=== PATIENT | male | born 1995 | race Caucasian/White ===

== ENCOUNTER 2021-05-13 01:34 | Inpatient (IN) ==
[2021-05-13 01:20] LABS: HEMATOCRIT 42.8 % (42.0-54.0); HEMOGLOBIN 15.3 g/dL (13.5-18.0); MEAN CORPUSCULAR HEMOGLOBIN 29.8 pg (27.0-34.0); MEAN CORPUSCULAR HGB CONC 35.7 g/dL (33.0-35.0); MEAN CORPUSCULAR VOLUME 83.5 fL (80.0-100.0); MEAN PLATELET VOLUME 7.6 fL (7.4-11.0); PLATELET COUNT 257 X10^3/uL (150.0-450.0); RED BLOOD COUNT 5.12 X10^6/uL (4.7-6.0); RED CELL DISTRIBUTION WIDTH 12.5 % (11.6-16.5)
[2021-05-13 01:22] LABS: BILIRUBIN,URINE NEGATIVE (NEGATIVE); BLOOD/HEMOGLOBIN,URINE NEGATIVE (NEGATIVE); GLUCOSE, URINE NEGATIVE (NEGATIVE); KETONES,URINE 1+ (NEGATIVE); LEUKOCYTE ESTERASE ,URINE NEGATIVE (NEGATIVE); NITRITES,URINE NEGATIVE (NEGATIVE); PROTEIN,URINE NEGATIVE (NEGATIVE); UROBILINOGEN,URINE NORMAL (NORMAL)
[2021-05-13 01:29] LABS: ALANINE AMINOTRANSFERASE 69 Units/L (12-78); ALBUMIN 4.1 g/dL (3.4-5.0); ALKALINE PHOSPHATASE 68 Units/L (46-116); ASPARTATE AMINO TRANSFERASE 27 Units/L (15-37); BLOOD UREA NITROGEN 12 mg/dL (7-18); CALCIUM 9.4 mg/dL (8.5-10.1); CARBON DIOXIDE 28.4 mmol/L (21-32); CHLORIDE 100 mmol/L (98-107); COR NA(FOR HYPERGLY) 139 mmol/L (136-145); CREATININE 0.94 mg/dL (0.70-1.30); SODIUM 139 mmol/L (136-145); TOTAL PROTEIN 7.8 g/dL (6.4-8.2); eGFR NON BLACK RACES > 60 (>60)
--- NOTE | 2021-05-13 01:31 | RAD ---
STUDY: ACUTE ABDOMEN SERIESCOMPARISON: NoneHISTORY: ABD PAINFINDINGS:CHEST:There is no focal consolidation seen.The heart size is normal.The mediastinum is unremarkable.There is no evidence of pleural effusion or gross pneumothorax.ABDOMEN:The bowel gas pattern is nonobstructive.There is no gross evidence of free air.There are no abnormal masses or calcification seen.The visualized bones are unremarkable.IMPRESSION:1. THE LUNGS ARE CLEAR AND THE HEART SIZE IS NORMAL.2. THE BOWEL GAS PATTERN IS NONOBSTRUCTIVE. Electronically signed by: Darryl Steen (May 13, 2021 01:29:34)
[2021-05-13 01:42] VITALS: BMI 38.5
--- NOTE | 2021-05-13 01:48 | DR.ABDMALE ---
HPI Time seen Time Seen by Provider: 05/13/21 01:46 EST PCP Primary Care Physician: LEROY HPI comment HPI Comment: Sudden onset generalized abd pain about six hours ago for which he took gas x as below without relief; continues to belch and pain continues; n/v x 6 and feels constipated; no prior hx abd complaints and still has gb and appendix; no fever, chills and only had steak for dinner; no acidic foods. Complaint Chief Complaint:: PT AMBULATORY IN ED WITH C/O MIDDLE UPPER ABD PAIN. PT STATES "MY STOMACH IS KILLING ME" "I HAVE THREW UP LIKE 6 TIMES SINCE 10" "I CAN'T USE THE BATHROOM". Self Treatment fo Chief Complaint: PT TOOK GASX AT HOME AROUND APPROX 2230. COVID-19 Coronavirus risk:travel/contact w/high risk person: No Has patient experienced Coronavirus symptoms: No Mode of arrival Mode of Arrival: Ambulatory Timing Onset of Chief Complaint: 05/13/21 PMH PMH Past Medical History: No Past Surgical History: No Family History History of Family Medical Conditions: Yes Family Medical History: Diabetes Mellitus, Cancer and [place] Social History Type of Tobacco Use: Cigarettes Alcohol Use: None Do you use any recreational Drugs:: No Lives With: Family Lives Where: Home Travel Risk Coronavirus risk:travel/contact w/high risk person: No Has patient experienced Coronavirus symptoms: No Infectious screening Have you traveled outside the country in the last 6 months?: No Isolation: Standard ROS Review of Systems Constitutional: No Symptoms Reported Eyes: No Symptoms Reported ENTM: No Symptoms Reported Respiratoy: No Symptoms Reported Cardiovascular: No Symptoms Reported Genitourinary: No Symptoms Reported Neurological: No Symptoms Reported Musculoskeletal: No Symptoms Reported Integumentary: No Symptoms Reported Hematologic/Lymphatic: No Symptoms Reported Endocrine: No Symptoms Reported Psychiatric: No Symptoms Reported PE Vital Signs Vital Signs: Temp Pulse Resp BP BP Pulse Ox 05/13/21 04:41 20 05/13/21 04:11 18 05/13/21 02:33 20 05/13/21 02:03 18 05/13/21 01:46 EST 20 05/13/21 01:16 EST 20 05/13/21 01:36 EDT 98.1 F 77 22 141/90 96 09/10/19 14:45 142/81 General Limitations: No Limitations General Appearance: Alert and In No Apparent Distress Head Head Exam: Normal Inspection Eyes Eye exam: Normal Appearance ENT ENT Exam: Normal Exam Neck Neck Exam: Normal Inspection Chest Chest Inspection: Normal Inspection Respiratory Respiratory Exam: Normal Lung Sounds Bilat Cardiovascular Cardiovascular Exam: Regular Rate and Normal Rhythm Abdominal Exam Abdominal Exam: Normal Inspection, Normal Bowel Sounds, Soft and Tenderness Abdominal Tenderness: RLQ and Moderate Rectal Rectal Exam: Deferred Back Back Exam: Normal Inspection Extremeties Extremities Exam: Normal Inspection Exam: Male: Deferred Neurologic Neurological Exam: Alert and Oriented X3 Psychiatric Psychiatric Exam: Normal Affect and Normal Mood Skin Skin Exam: Warm, Dry, Intact and Normal Color MDM Differential Diagnosis Differential Diagnosis: Appendicitis, Bowel Obstruction, Cholcystitis, Divert icular disease, Gastroenteritis, Hepatitis and Pancreatitis COURSE Reevaluation 1st: Unchanged 2nd: Unchanged 3rd: Improved Consultation Call Returned: 05:14 (Dr Montgomery accepts admission) Education/Counseling Education/Counseling: Patient and Family Educated On: Treatment and Diagnosis ROR Labs Reviewed Laboratory Results Reviewed?: Yes Result Diagrams: 05/13/21 01:00 EST 05/13/21 01:00 EST Laboratory: WBC 18.0 X10^3/uL (3.6-10.0) H 05/13/21 01:00 EST RBC 5.12 X10^6/uL (4.7-6.0) 05/13/21 01:00 EST Hgb 15.3 g/dL (13.5-18.0) 05/13/21 01:00 EST Hct 42.8 % (42.0-54.0) 05/13/21 01:00 EST MCV 83.5 fL (80.0-100.0) 05/13/21 01:00 EST MCH 29.8 pg (27.0-34.0) 05/13/21 01:00 EST MCHC 35.7 g/dL (33.0-35.0) H 05/13/21 01:00 EST RDW 12.5 % (11.6-16.5) 05/13/21 01:00 EST Plt Count 257 X10^3/uL (150.0-450.0) 05/13/21 01:00 EST MPV 7.6 fL (7.4-11.0) 05/13/21 01:00 EST Absolute Nucleated RBC 0.0 /100WBC 05/13/21 01:00 EST Sodium 139 mmol/L (136-145) 05/13/21 01:00 EST Corrected Sodium 139 mmol/L (136-145) 05/13/21 01:00 EST Potassium 3.8 mmol/L (3.5-5.1) 05/13/21 01:00 EST Chloride 100 mmol/L (98-107) 05/13/21 01:00 EST Carbon Dioxide 28.4 mmol/L (21-32) 05/13/21 01:00 EST BUN 12 mg/dL (7-18) 05/13/21 01:00 EST Creatinine 0.94 mg/dL (0.70-1.30) 05/13/21 01:00 EST Est GFR (MDRD) Af Amer > 60 (>60) 05/13/21 01:00 EST Est GFR (MDRD) Non-Af > 60 (>60) 05/13/21 01:00 EST Glucose 120 mg/dL (65-99) H 05/13/21 01:00 EST Calcium 9.4 mg/dL (8.5-10.1) 05/13/21 01:00 EST Corrected Calcium TNP 05/13/21 01:00 EST Total Bilirubin 0.70 mg/dL (0.2-1.0) 05/13/21 01:00 EST AST 27 Units/L (15-37) 05/13/21 01:00 EST ALT 69 Units/L (12-78) 05/13/21 01:00 EST Alkaline Phosphatase 68 Units/L (46-116) 05/13/21 01:00 EST Total Protein 7.8 g/dL (6.4-8.2) 05/13/21 01:00 EST Albumin 4.1 g/dL (3.4-5.0) 05/13/21 01:00 EST Globulin 3.7 g/dL (2.5-4.5) 05/13/21 01:00 EST Albumin/Globulin Ratio 1.1 Ratio (1.1-2.1) 05/13/21 01:00 EST Lipase 57 Units/L (73-393) L 05/13/21 01:00 EST Specimen Type Clean catch urine 05/13/21 00:47 Urine Color Yellow (YELLOW) 05/13/21 00:47 Urine Appearance Clear (CLEAR) 05/13/21 00:47 Urine pH 6.0 (5.0 - 8.0) 05/13/21 00:47 Ur Specific [place] 1.020 (1.000-1.030) 05/13/21 00:47 Urine Protein Negative (NEGATIVE) 05/13/21 00:47 Urine Glucose (UA) Negative (NEGATIVE) 05/13/21 00:47 Urine Ketones 1+ (NEGATIVE) 05/13/21 00:47 Urine Occult Blood Negative (NEGATIVE) 05/13/21 00:47 Urine Nitrite Negative (NEGATIVE) 05/13/21 00:47 Urine Bilirubin Negative (NEGATIVE) 05/13/21 00:47 Urine Urobilinogen Normal (NORMAL) 05/13/21 00:47 Ur Leukocyte Esterase Negative (NEGATIVE) 05/13/21 00:47 SARS-CoV-2 (PCR) Negative (NEGATIVE) 05/13/21 05:15 Influenza Type A (PCR) Negative (NEGATIVE) 05/13/21 05:15 Influenza Type B (PCR) Negative (NEGATIVE) 05/13/21 05:15 RSV (PCR) Negative (NEGATIVE) 05/13/21 05:15 Other Results Comments: 0505 radiologist reports "acute appendicitis, possible rupture" XRAY XRAY Interpreted by: Radiologist X-ray Results: ct abd/pelvis: 1. Exam is positive for acute appendicitis. There is a possibility that the distal segment of the appendix has ruptured and a moderate amount of surrounding free fluid stranding is noted. Surgical consultation is recommended. abd xr: 1. THE LUNGS ARE CLEAR AND THE HEART SIZE IS NORMAL. 2. THE BOWEL GAS PATTERN IS NONOBSTRUCTIVE. Opioid Opioid Risk Tool Age (Aryan box if 16-45): Yes History of Preadolescent Sexual Abuse: No Total: 1 Total Score Risk Category: Low Risk Copyright: Ángel RIOS predicting aberrant behaviors Diagnosis Discharge Problem: Lymphocytosis Appendicitis Qualifiers: Appendicitis type: acute appendicitis Acute appendicitis type: with localized peritonitis Appendicitis gangrene presence: without gangrene Appendicitis perforation presence: with perforation Appendicitis abscess presence: without abscess Qualified Code(s): K35.32 - Acute appendicitis with perforation and localized peritonitis, without abscess
[2021-05-13 01:49] LABS: APPEARANCE,URINE CLEAR (CLEAR); COLOR,URINE YELLOW (YELLOW)
[2021-05-13] MEDS ORDERED: ZOFRAN INJ 4 MG VIAL IVP ONE ×2 (01:49→04:12)
[2021-05-13] MEDS ORDERED: NS 1,000 ML IV 1,000 ML IV ONE (01:49)
[2021-05-13] MEDS ORDERED: ZOFRAN INJ 4 MG VIAL ONE ×3 (01:50→09:07)
[2021-05-13] MEDS ORDERED: NS 1,000 ML IV 1,000 ML ONE ×2 (01:50→05:41)
[2021-05-13] MEDS ORDERED: MORPHINE SULFATE INJ 4 MG IVP ONE (01:53)
[2021-05-13] MEDS ORDERED: DILAUDID INJ IVP ONE (01:53)
[2021-05-13] MEDS ORDERED: MORPHINE SULFATE INJ 4 MG ONE (01:56)
[2021-05-13] MEDS: DILAUDID INJ ONE ×2 (02:01→02:04)
[2021-05-13] MEDS ORDERED: NS 100 ML IV 100 ML ONE ×2 (02:40→09:49)
[2021-05-13] MEDS ORDERED: DILAUDID INJ IVP STA ×2 (03:47→05:22)
[2021-05-13] MEDS ORDERED: DILAUDID INJ ONE ×3 (04:06→09:15)
--- NOTE | 2021-05-13 05:09 | CT ---
STUDY: CT ABDOMEN AND PELVIS WITH IV CONTRASTCOMPARISON: NoneTECHNIQUE: Axial images were acquired of the abdomen and pelvis with IV contrast. Sagittal and coronal reformatted images were provided. All images were reviewed in a variety of windows and levels.RADIATION REDUCTION TECHNIQUE: Automated exposure control, adjustment of the mA and/or kV according to patient size, or iterative reconstruction techniques were used.HISTORY: RLQ PAIN, LYMPHOCYTOSISFINDINGS:LOWER THORAX: The visualized lower lung zones are clear. The heart size is within normal limits. There is no evidence of a pericardial effusion.LIVER: No intrahepatic focal lesions are seen. No evidence of intrahepatic or extrahepatic duct dilation.GALLBLADDER: The gallbladder is unremarkable.SPLEEN: The spleen enhances homogenously and is unremarkable.PANCREAS: The pancreas enhances homogenously and is unremarkable.AGRENAL GLANDS: The adrenal glands enhance homogenously and are unremarkable.: The kidneys enhance homogenously. Their collecting system is of normal caliber.URINARY BLADDER: The urinary bladder is unremarkable. There are no soft tissue masses seen in the urinary bladder.VESSELS: The abdominal aorta is normal in size without evidence of aneurysm or dissection. The celiac artery, superior mesenteric artery, [place] renal arteries, and inferior mesenteric artery are patent.GI: The stomach and small bowel is unremarkable. Few scattered diverticula are seen without evidence of diverticulitis. Dilated inflamed appendix is seen measuring up to 18 mm compatible with acute appendicitis. Moderate degree of surrounding inflammatory changes and fluid stranding is seen. There is no evidence of a rim enhancing fluid collection to suggest abscess formation. The appendix may potentially ruptured given the appearance of the distal segment.LYMPHNODES AND MESSENTERY: There is no evidence of retroperitoneal lymphadenopathy.BONES: The visualized bones demonstrate degenerative changes. There are no concerning lytic or blastic lesions identified.IMPRESSION:1. Exam is positive for acute appendicitis. There is a possibility that the distal segment of the appendix has ruptured and a moderate amount of surrounding free fluid stranding is noted. Surgical consultation is recommended.COMMUNICATIONS: These findings were discussed with Dr. Hannah Su of the emergency Department at 5 a.m. Eastern standard timeElectronically signed by: Darryl Steen (May 13, 2021 05:07:55)
[2021-05-13] MEDS ORDERED: ZOFRAN INJ 4 MG VIAL IVP PRN (05:24)
[2021-05-13] MEDS ORDERED: NS 1,000 ML IV 1,000 ML IV SCH (06:00)
[2021-05-13] MEDS: DILAUDID INJ IVP PRN ×4 (09:00→23:19)
[2021-05-13] MEDS ORDERED: XYLOCAINE 2 % (PLAIN) ONE (09:07)
[2021-05-13] MEDS ORDERED: KETALAR ONE (09:07)
[2021-05-13] MEDS ORDERED: DIPRIVAN VIAL ONE (09:07)
[2021-05-13] MEDS ORDERED: LACRI-LUBE S.O.P. ONE (09:07)
[2021-05-13] MEDS ORDERED: TORADOL 30 MG VIAL ONE (09:07)
[2021-05-13] MEDS ORDERED: VERSED ONE (09:07)
[2021-05-13] MEDS ORDERED: DECADRON INJ ONE (09:14)
[2021-05-13] MEDS ORDERED: FENTANYL VIAL INJ 100 mcg ONE (09:15)
[2021-05-13] MEDS ORDERED: PEPCID 20 MG IV PREMIX* 50 ML IV ONE (09:15)
[2021-05-13] MEDS ORDERED: BRIDION ONE (09:15)
[2021-05-13] MEDS ORDERED: OFIRMEV IV 1000 MG VIAL 1,000 MG/100 ML VIAL IV ONE (09:15)
[2021-05-13] MEDS ORDERED: ZEMURON 50 MG VIAL ONE (09:16)
[2021-05-13] MEDS ORDERED: MARCAINE 0.25% INJ ONE (09:18)
[2021-05-13] MEDS ORDERED: DILAUDID INJ IVP PRN (09:36)
[2021-05-13] MEDS ORDERED: PHENERGAN INJ 25 MG IM PRN (09:36)
[2021-05-13] MEDS ORDERED: BARHEMSYS INJ IVP PRN (09:36)
[2021-05-13] MEDS ORDERED: BENADRYL INJ 50 MG VIAL IVP PRN (09:36)
--- NOTE | 2021-05-13 09:46 | DR.H&P ---
H&P History & Physical for Day of: H&P Date: 05/13/21 Chief Complaint Chief Complaint: Abdominal pain, nausea and vomiting Allergies Allergies Allergy/AdvReac Type Severity Reaction Status Date / Time No Known Drug Allergies Allergy Verified 09/10/19 13:25 History of Present Illness History of Present Illness: 26 year old male with acute on set of lower abdominal pain, nausea and vomiting. He presented to the emergency room and CT scan was consistent with acute appendicitis. White blood cell count 65551 . Past Medical History Past Medical History: denies Alzheimers, Anemia, Angina, Anxiety, Arthritis, Asthma, Cirrhosis, CHF, COPD, Coronary Artery Disease, CVA, Dementia, Depression, Diabetes, Dialysis, Dyslipidemia, Migraines, GERD, Gout, Headaches, Hypertension, Hyperthyroidism, Hypothyroidism, Kidney Stones, Liver Disease, [place], PUD, Renal Disease, Schizophrenia, Seizures, Sleep Apnea, SVT and Ventricular Tachycardia Past Surgical History Surgical History: denies Unknown, No History, AAA Repair, Abdominal Surgery, Angioplasty/Stents, Appendectomy, Bowel Resection, , CABG/Valve Surgery, Carotid Endarterectomy, Cholecystectomy, Ectopic , INFORMATICA MDM ARCHITECT Surgery, Hysterectomy, Joint Replacement, Mastectomy, Neurosurgery, Organ Transplant, Ortho Surgery, Spleenectomy, Thyroidectomy, Tonsillectomy, TURP, Weight Loss Surgery, Lithotripsy and Other Family History Family Medical History: Diabetes Mellitus, Cancer and [place] Social History Does patient currently use any type of tobacco product: No Have you used tobacco products in the last 12 months: No Type of Tobacco Use: Cigarettes Does any household member use tobacco: No Alcohol Use: None Drug Use: None Risks, benefits, and alternatives of opioids discussed: No Prescription drug monitoring program results: PDMP reviewed and no concerns identified Medications Home Medications: No Known Drug Allergies Allergy (Verified 09/10/19 13:25) CONTINUE taking the following medications NK 05/13/21 [History] Labs Result Diagrams: 05/13/21 01:00 EST 05/13/21 01:00 EST Labs: Laboratory WBC 18.0 X10^3/uL (3.6-10.0) H 05/13/21 01:00 EST RBC 5.12 X10^6/uL (4.7-6.0) 05/13/21 01:00 EST Hgb 15.3 g/dL (13.5-18.0) 05/13/21 01:00 EST Hct 42.8 % (42.0-54.0) 05/13/21 01:00 EST MCV 83.5 fL (80.0-100.0) 05/13/21 01:00 EST MCH 29.8 pg (27.0-34.0) 05/13/21 01:00 EST MCHC 35.7 g/dL (33.0-35.0) H 05/13/21 01:00 EST RDW 12.5 % (11.6-16.5) 05/13/21 01:00 EST Plt Count 257 X10^3/uL (150.0-450.0) 05/13/21 01:00 EST MPV 7.6 fL (7.4-11.0) 05/13/21 01:00 EST Absolute Nucleated RBC 0.0 /100WBC 05/13/21 01:00 EST Sodium 139 mmol/L (136-145) 05/13/21 01:00 EST Corrected Sodium 139 mmol/L (136-145) 05/13/21 01:00 EST Potassium 3.8 mmol/L (3.5-5.1) 05/13/21 01:00 EST Chloride 100 mmol/L (98-107) 05/13/21 01:00 EST Carbon Dioxide 28.4 mmol/L (21-32) 05/13/21 01:00 EST BUN 12 mg/dL (7-18) 05/13/21 01:00 EST Creatinine 0.94 mg/dL (0.70-1.30) 05/13/21 01:00 EST Est GFR (MDRD) Af Amer > 60 (>60) 05/13/21 01:00 EST Est GFR (MDRD) Non-Af > 60 (>60) 05/13/21 01:00 EST Glucose 120 mg/dL (65-99) H 05/13/21 01:00 EST Calcium 9.4 mg/dL (8.5-10.1) 05/13/21 01:00 EST Corrected Calcium TNP 05/13/21 01:00 EST Total Bilirubin 0.70 mg/dL (0.2-1.0) 05/13/21 01:00 EST AST 27 Units/L (15-37) 05/13/21 01:00 EST ALT 69 Units/L (12-78) 05/13/21 01:00 EST Alkaline Phosphatase 68 Units/L (46-116) 05/13/21 01:00 EST Total Protein 7.8 g/dL (6.4-8.2) 05/13/21 01:00 EST Albumin 4.1 g/dL (3.4-5.0) 05/13/21 01:00 EST Globulin 3.7 g/dL (2.5-4.5) 05/13/21 01:00 EST Albumin/Globulin Ratio 1.1 Ratio (1.1-2.1) 05/13/21 01:00 EST Lipase 57 Units/L (73-393) L 05/13/21 01:00 EST Specimen Type Clean catch urine 05/13/21 00:47 Urine Color Yellow (YELLOW) 05/13/21 00:47 Urine Appearance Clear (CLEAR) 05/13/21 00:47 Urine pH 6.0 (5.0 - 8.0) 05/13/21 00:47 Ur Specific [place] 1.020 (1.000-1.030) 05/13/21 00:47 Urine Protein Negative (NEGATIVE) 05/13/21 00:47 Urine Glucose (UA) Negative (NEGATIVE) 05/13/21 00:47 Urine Ketones 1+ (NEGATIVE) 05/13/21 00:47 Urine Occult Blood Negative (NEGATIVE) 05/13/21 00:47 Urine Nitrite Negative (NEGATIVE) 05/13/21 00:47 Urine Bilirubin Negative (NEGATIVE) 05/13/21 00:47 Urine Urobilinogen Normal (NORMAL) 05/13/21 00:47 Ur Leukocyte Esterase Negative (NEGATIVE) 05/13/21 00:47 SARS-CoV-2 (PCR) Negative (NEGATIVE) 05/13/21 05:15 Influenza Type A (PCR) Negative (NEGATIVE) 05/13/21 05:15 Influenza Type B (PCR) Negative (NEGATIVE) 05/13/21 05:15 RSV (PCR) Negative (NEGATIVE) 05/13/21 05:15 Review of Systems Constitutional: Other (abdominal pain, nausea and vomiting) Eyes: No Symptoms Reported ENT: No Symptoms Reported Respiratory: No Symptoms Reported Cardiovascular: No Symptoms Reported Gastrointestinal: Nausea, Vomiting and Constipation Genitourinary: No Symptoms Reported Musculoskeletal: No Symptoms Reported Skin: No Symptoms Reported Neurological: No Symptoms Reported Physical Exam Vital Signs: Temperature 97.9 F Pulse Rate [Left Brachial] 88 Pulse Rate 77 Respiratory Rate 20 Blood Pressure [Left Arm] 146/96 Blood Pressure 141/90 O2 Sat by Pulse Oximetry 95 Oriented: Normal, Time, Person and Place Eyes: Normal Ear: Normal Nose: Normal Throat: Normal Respiratory: Clear Throughout Cardiovascular: Normal Auscultation: Bowel Sounds: Normal and Increased Tenderness: RLQ (with mild rebound) Skin: Normal Musculoskeletal: Normal Psychiatric: Normal Mood Description: Calm Affect: Normal Speech Pattern: Clear Assessment/Plan (1) Appendicitis: Qualifiers: Acute appendicitis type: with localized peritonitis Appendicitis abscess presence: without abscess Appendicitis gangrene presence: without gangrene Appendicitis perforation presence: with perforation Appendicitis type: acute appendicitis Qualified Code(s): K35.32 - Acute appendicitis with perforation and localized peritonitis, without abscess Status: Acute Plan: To OR for laparoscopic appendectomy. Risk and benefits discuss with the patient including the possibility of bleeding infection. Discuss possibility of having to convert to an open operation Which is less than one in a hundred in my hands. He and his family understand and agree to proceed. Review H&P Reviewed: Yes Patient was examined?: Yes
[2021-05-13] MEDS ORDERED: ANCEF VIAL 1 GRAM ONE (09:49)
[2021-05-13] MEDS ORDERED: MARCAINE 0.5% ONE (09:54)
--- NOTE | 2021-05-13 10:48 | OR.IMMED ---
IMMEDIATE POST-OP NOTE Immediate Post-Op Note Pre-Op Diagnosis: Acute appendicitis, possible rupture Post-Op Diagnosis: acute appendicitis no evidence of rupture Procedure: laparoscopic appendectomy Description of Procedure: See operative summary Surgeon/Passport Support Manager: Valentina Findings: acute appendicitis no obvious rupture, retrocecal Specimens Removed: appendix Estimated Blood Loss: 25 cc's Drains: NONE Complications: none Progress Notes: to PACU then to floor. Possibly discharge home either this afternoon or tomorrow on PO Cipro and Percocet. Final Diagnosis: Acute appendicitis
[2021-05-13] MEDS: LR 1,000 ML IV 1,000 ML IV SCH (11:00)
--- NOTE | 2021-05-13 11:07 | DR.OPNOTE ---
OP NOTE Pre-Op Diagnosis: possible ruptured appendicitis Post-Op Diagnosis: acute appendicitis , no evidence of rupture Procedure Date Date Of Procedure: 05/13/21 Procedure: Laparoscopic appendectomy NARRATIVE : The patient was taken to the operating Suite, placed in the Supine position and General endotracheal anesthesia induced. He was placed in slight Trendelenburg and rolled to his left. The Abdomen was prepped and draped in sterile fashion. Time out for the procedure pain. 5 mm incision was made lateral to the left rectus sheath online with the umbilicus and a 5 millimeter Optical trocar used to enter the abdominal cavity. Abdomen insufflated to 15 millimeters of Mercury. Under direct vision 5 mm trocar placed above the pubic tubercle in the midline and a 12 mm trocar placed in the left lower quadrant .There was evidence of acute appendicitis but no evidence of rupture. Appendix was in the retrocecal position. The white line of [place] was taken down sharply mobilizing the cecum medially. While dissecting the blood supply to the appendix was divided and the appendiceal artery had a clip placed on it to control bleeding. The base of the appendix was then divided with one fire of the Endo-Carmen stapler and the appendix placed in a specimen bag and brought out through the 12 mm trocar site. The abdomen was irrigated and suctioned free. All trocars removed. All laparoscopic incisions closed with interrupted 3-0 Vicryl sutures and the skin closed with steri-strips. A total of 15 cc's of 0. 5% Marcaine was distributed between the three laparoscopic incisions. The patient was extubated and taken to the PACU in good condition. Type of Anesthesia: General Anesthetic w/ETT Findings: acute appendicitis, no clinical evidence of rupture Specimen/Pathology: appendix Type of Fluids Used:: Normal Saline Total Amount of Fluid Infused:: 800cc Urine output: 0 EBL: 25 cc Drains/Tubes Placed: None Complications:: none Needle/Sponge Count:: correct Disposition/Condition: Pt. tolerated procedure without difficulty. Extubated in the OR and taken to PACU in stable condition.
[2021-05-13] MEDS: PERCOCET TAB 5/325 MG PO PRN ×2 (11:50→20:42)
[2021-05-13] MEDS: CIPRO TAB 500 MG PO SCH (20:42)
[2021-05-14] MEDS: LR 1,000 ML IV 1,000 ML IV SCH ×2 (01:34→02:28)
[2021-05-14] MEDS: PERCOCET TAB 5/325 MG PO PRN (02:34)
[2021-05-14 08:07] VITALS: BP 127/83
[2021-05-14] MEDS: CIPRO TAB 500 MG PO SCH (08:12)
[2021-05-14] MEDS ORDERED: PERCOCET TAB 5/325 MG PO PRN (08:30)
[2021-05-14] MEDS ORDERED: PERCOCET TAB 5/325 MG ONE (08:32)
--- NOTE | 2021-05-14 09:33 | W.DIS.FURT ---
Summary of Discharge Discharge Summary of Date Date of Exam: 05/14/21 Admission Date Date of Admission: 05/13/21 Admission Diagnosis Patient Problems (Updated 05/13/21 @ 06:21 by Hannah Toth) Appendicitis (Acute) K37 Lymphocytosis (Acute) D72.820 Hospital Course: This 26 year old male presented with acute onset of right lower quadrant and lower abdominal pain with nausea and vomiting. CT scan was consistent with acute appendicitis with possible rupture. He underwent uncomplicated laparoscopic appendectomy. There was no evidence of rupture. He was also treated with IV antibiotics. He was observed and has done well He will be discharged today on ciprofloxacin 500mg BID x 5 days as well as Percocet 5 milligram tablets, one every six hours PRN pain, # 30.He will follow up with me in one week. Vital Signs: Vital Signs (72 hours) 05/13/21 01:36 EDT 05/13/21 01:16 EST 05/13/21 01:46 EST Temperature 98.1 F Pulse Rate 77 Pulse Rate [Left Brachial] Respiratory Rate 22 20 20 Blood Pressure 141/90 Blood Pressure [Left Arm] O2 Sat by Pulse Oximetry 96 05/13/21 02:03 05/13/21 02:33 05/13/21 04:11 Temperature Pulse Rate Pulse Rate [Left Brachial] Respiratory Rate 18 20 18 Blood Pressure Blood Pressure [Left Arm] O2 Sat by Pulse Oximetry 05/13/21 04:41 05/13/21 05:48 05/13/21 05:55 Temperature 97.9 F Pulse Rate Pulse Rate [Left Brachial] 88 Respiratory Rate 20 20 20 Blood Pressure Blood Pressure [Left Arm] 146/96 O2 Sat by Pulse Oximetry 95 05/13/21 06:00 05/13/21 08:00 05/13/21 09:00 Temperature 98.5 F Pulse Rate Pulse Rate [Left Brachial] 86 89 Respiratory Rate 20 20 20 Blood Pressure Blood Pressure [Left Arm] 145/74 162/103 154/92 O2 Sat by Pulse Oximetry 97 93 L 05/13/21 09:30 05/13/21 09:57 05/13/21 10:27 Temperature 97.1 F L Pulse Rate 90 Pulse Rate [Left Brachial] Respiratory Rate 20 16 20 Blood Pressure 149/74 Blood Pressure [Left Arm] O2 Sat by Pulse Oximetry 96 05/13/21 10:57 05/13/21 11:02 05/13/21 11:07 Temperature 98.1 F Pulse Rate 91 H 93 H 93 H Pulse Rate [Left Brachial] Respiratory Rate 16 16 16 Blood Pressure 163/77 159/82 162/77 Blood Pressure [Left Arm] O2 Sat by Pulse Oximetry 94 L 93 L 95 05/13/21 11:12 05/13/21 11:17 05/13/21 11:22 Temperature Pulse Rate 95 H 117 H 98 H Pulse Rate [Left Brachial] Respiratory Rate 16 18 18 Blood Pressure 160/72 158/61 154/69 Blood Pressure [Left Arm] O2 Sat by Pulse Oximetry 94 L 94 L 91 L 05/13/21 11:27 05/13/21 11:40 05/13/21 11:50 Temperature 98.6 F Pulse Rate 98 H Pulse Rate [Left Brachial] 108 H Respiratory Rate 18 22 18 Blood Pressure 149/69 Blood Pressure [Left Arm] 131/73 O2 Sat by Pulse Oximetry 93 L 96 05/13/21 11:55 05/13/21 12:10 05/13/21 12:25 Temperature Pulse Rate Pulse Rate [Left Brachial] 105 H 97 H 103 H Respiratory Rate 20 20 20 Blood Pressure Blood Pressure [Left Arm] 149/75 144/77 139/68 O2 Sat by Pulse Oximetry 94 L 94 L 92 L 05/13/21 12:40 05/13/21 12:50 05/13/21 13:40 Temperature 98.2 F Pulse Rate Pulse Rate [Left Brachial] 106 H 105 H Respiratory Rate 20 18 20 Blood Pressure Blood Pressure [Left Arm] 142/82 138/89 O2 Sat by Pulse Oximetry 90 L 92 L 05/13/21 14:00 05/13/21 14:30 05/13/21 14:40 Temperature Pulse Rate Pulse Rate [Left Brachial] 88 Respiratory Rate 18 20 20 Blood Pressure Blood Pressure [Left Arm] 154/79 O2 Sat by Pulse Oximetry 96 05/13/21 16:40 05/13/21 19:10 05/13/21 19:40 Temperature Pulse Rate Pulse Rate [Left Brachial] 102 H Respiratory Rate 20 20 20 Blood Pressure Blood Pressure [Left Arm] 134/79 O2 Sat by Pulse Oximetry 93 L 05/13/21 20:00 05/13/21 20:42 05/13/21 21:41 Temperature 98.6 F Pulse Rate Pulse Rate [Left Brachial] 107 H Respiratory Rate 21 20 21 Blood Pressure Blood Pressure [Left Arm] 135/78 O2 Sat by Pulse Oximetry 94 L 05/13/21 23:19 05/13/21 23:49 05/14/21 00:00 Temperature 98.9 F Pulse Rate Pulse Rate [Left Brachial] 103 H Respiratory Rate 18 18 18 Blood Pressure Blood Pressure [Left Arm] 137/78 O2 Sat by Pulse Oximetry 94 L 05/14/21 02:34 05/14/21 03:34 05/14/21 04:00 Temperature 98.6 F Pulse Rate Pulse Rate [Left Brachial] 104 H Respiratory Rate 18 18 24 Blood Pressure Blood Pressure [Left Arm] 139/70 O2 Sat by Pulse Oximetry 97 05/14/21 08:00 05/14/21 08:35 Temperature 98.1 F Pulse Rate Pulse Rate [Left Brachial] 93 H Respiratory Rate 20 20 Blood Pressure Blood Pressure [Left Arm] 127/83 O2 Sat by Pulse Oximetry 96 Labs: Laboratory Last Values WBC 18.0 X10^3/uL (3.6-10.0) H 05/13/21 01:00 EST RBC 5.12 X10^6/uL (4.7-6.0) 05/13/21 01:00 EST Hgb 15.3 g/dL (13.5-18.0) 05/13/21 01:00 EST Hct 42.8 % (42.0-54.0) 05/13/21 01:00 EST MCV 83.5 fL (80.0-100.0) 05/13/21 01:00 EST MCH 29.8 pg (27.0-34.0) 05/13/21 01:00 EST MCHC 35.7 g/dL (33.0-35.0) H 05/13/21 01:00 EST RDW 12.5 % (11.6-16.5) 05/13/21 01:00 EST Plt Count 257 X10^3/uL (150.0-450.0) 05/13/21 01:00 EST MPV 7.6 fL (7.4-11.0) 05/13/21 01:00 EST Absolute Nucleated RBC 0.0 /100WBC 05/13/21 01:00 EST Sodium 139 mmol/L (136-145) 05/13/21 01:00 EST Corrected Sodium 139 mmol/L (136-145) 05/13/21 01:00 EST Potassium 3.8 mmol/L (3.5-5.1) 05/13/21 01:00 EST Chloride 100 mmol/L (98-107) 05/13/21 01:00 EST Carbon Dioxide 28.4 mmol/L (21-32) 05/13/21 01:00 EST BUN 12 mg/dL (7-18) 05/13/21 01:00 EST Creatinine 0.94 mg/dL (0.70-1.30) 05/13/21 01:00 EST Est GFR (MDRD) Af Amer > 60 (>60) 05/13/21 01:00 EST Est GFR (MDRD) Non-Af > 60 (>60) 05/13/21 01:00 EST Glucose 120 mg/dL (65-99) H 05/13/21 01:00 EST Calcium 9.4 mg/dL (8.5-10.1) 05/13/21 01:00 EST Corrected Calcium TNP 05/13/21 01:00 EST Total Bilirubin 0.70 mg/dL (0.2-1.0) 05/13/21 01:00 EST AST 27 Units/L (15-37) 05/13/21 01:00 EST ALT 69 Units/L (12-78) 05/13/21 01:00 EST Alkaline Phosphatase 68 Units/L (46-116) 05/13/21 01:00 EST Total Protein 7.8 g/dL (6.4-8.2) 05/13/21 01:00 EST Albumin 4.1 g/dL (3.4-5.0) 05/13/21 01:00 EST Globulin 3.7 g/dL (2.5-4.5) 05/13/21 01:00 EST Albumin/Globulin Ratio 1.1 Ratio (1.1-2.1) 05/13/21 01:00 EST Lipase 57 Units/L (73-393) L 05/13/21 01:00 EST Specimen Type Clean catch urine 05/13/21 00:47 Urine Color Yellow (YELLOW) 05/13/21 00:47 Urine Appearance Clear (CLEAR) 05/13/21 00:47 Urine pH 6.0 (5.0 - 8.0) 05/13/21 00:47 Ur Specific [place] 1.020 (1.000-1.030) 05/13/21 00:47 Urine Protein Negative (NEGATIVE) 05/13/21 00:47 Urine Glucose (UA) Negative (NEGATIVE) 05/13/21 00:47 Urine Ketones 1+ (NEGATIVE) 05/13/21 00:47 Urine Occult Blood Negative (NEGATIVE) 05/13/21 00:47 Urine Nitrite Negative (NEGATIVE) 05/13/21 00:47 Urine Bilirubin Negative (NEGATIVE) 05/13/21 00:47 Urine Urobilinogen Normal (NORMAL) 05/13/21 00:47 Ur Leukocyte Esterase Negative (NEGATIVE) 05/13/21 00:47 SARS-CoV-2 (PCR) Negative (NEGATIVE) 05/13/21 05:15 Influenza Type A (PCR) Negative (NEGATIVE) 05/13/21 05:15 Influenza Type B (PCR) Negative (NEGATIVE) 05/13/21 05:15 RSV (PCR) Negative (NEGATIVE) 05/13/21 05:15 Tissue Pathology To follow 05/13/21 10:35 Reason For Visit: ACUTE APPENDICITIS, POSS RUPTURE Discharge Date Discharge Date: 05/14/21 Discharge Diagnosis All Active Problems (Updated 05/13/21 @ 06:21 by Hannah Toth) Diarrhea (Acute) Influenza A (Acute) Pharyngitis (Acute) Appendicitis (Acute) Lymphocytosis (Acute) Plan of Treatment: Continue with present treatment and follow up plan. Pt is to keep follow up appointment as instructed and take medications as ordered. Discharge Medications Discharge Medications: No Known Drug Allergies Allergy (Verified 09/10/19 13:25) New Prescriptions ciprofloxacin HCl [Cipro] 500 mg PO Q12H 5 Days #10 tab 05/13/21 [Rx] oxycodone-acetaminophen [Percocet] 1 tab PO Q6H PRN #20 tab MDD 4 05/13/21 [Rx] Follow up and Referral Follow Up: Dr. Montgomery 1 Week Discharge Disposition Assessment: acute appendicitis Discharge Disposition: good Discharge Condition: good Discharge Plan Discharge Plan Hospital Course: This 26 year old male presented with acute onset of right lower quadrant and lower abdominal pain with nausea and vomiting. CT scan was consistent with acute appendicitis with possible rupture. He underwent uncomplicated laparoscopic appendectomy. There was no evidence of rupture. He was also treated with IV antibiotics. He was observed and has done well He will be discharged today on ciprofloxacin 500mg BID x 5 days as well as Percocet 5 milligram tablets, one every six hours PRN pain, # 30.He will follow up with me in one week. Patient Disposition: 01 HOME, SELF-CARE Condition: Stable Health Concerns: Post Hospitalization: new medications and changes needed to prevent readmission or further decline. Pt educated and given instructions on all concerns. Care Plan Goals: resume usual activity Plan of Treatment: Continue with present treatment and follow up plan. Pt is to keep follow up appointment as instructed and take medications as ordered. Assessment: acute appendicitis Prescription drug monitoring program results: PDMP reviewed and no concerns identified Prescriptions: New ciprofloxacin HCl [Cipro] 500 mg Tablet 500 mg PO Q12H 5 Days Qty: 10 RF: 0 oxycodone-acetaminophen [Percocet] 5-325 mg Tablet 1 tab PO Q6H MDD 4 PRNQty: 20 RF: 0 Follow ups/Referrals Follow ups/Referrals: Shekhar De La Torre [Primary Care Provider] - 05/21/21 11:00 am Jeff Montgomery [STAFF PHYSICIAN] - 05/23/21 1:00 pm Instructions Instructions: Diarrhea, Adult, Laparoscopic Appendectomy, Adult, Care After, [id number], Appendicitis, Adult, [id number] Stand Alone Forms: Excuse From Work or School, Precautions for COVID19, [facility], Patient Portal, Social Distancing
== END 2021-05-14 11:25 | disposition home or self-care (01) | DRG 343 ==
LOC: ER 01:34 → MED/SURG 05:42
PROVIDERS: ADMIT Surgery; ATTEND Surgery
PROC: APPYLAP (ICD-10-PCS; 2021-05-13 10:00)
DX: Z20.822 Contact with and (suspected) exposure to COVID-19; R11.2 Nausea with vomiting, unspecified; K35.890 Other acute appendicitis without perforation or gangrene; R10.84 Generalized abdominal pain